=== PATIENT | male | born 1945 | race Two or more races ===

== ENCOUNTER 2017-05-23 16:20 | Outpatient (CLI) | payer OTHER | END 2017-05-23 16:22 | disposition home or self-care (01) | LOC: LAB 16:20 | DX: R97.20 Elevated prostate specific antigen [PSA] (principal) ==

== ENCOUNTER 2017-06-09 07:14 | Outpatient (CLI) | payer OTHER | END 2017-06-09 07:19 | disposition home or self-care (01) | LOC: SONOGRAMA 07:14 | DX: R97.20 Elevated prostate specific antigen [PSA] (principal) ==

== ENCOUNTER → 2017-07-05 | Outpatient (CLI) | payer OTHER | END | disposition home or self-care (01) | LOC: TOM 09:00 | DX: R97.20 Elevated prostate specific antigen [PSA] (principal); C61 Malignant neoplasm of prostate | CPT/HCPCS: 74178; Q9965 ==